=== PATIENT | male | born 1945 | race Caucasian/White ===

== ENCOUNTER → 2018-04-14 | Outpatient (CLI) | payer MEDICARE, OTHER ==
--- NOTE | 2018-04-14 15:43 | 2DMMODE ---
[place] [address] 2 D/M-MODE ECHOCARDIOGRAM Name: CHARANJIT NEWTON JR Room: [facility]#: [id number] Admission: 04/14/18 Attend Phys: Lilliam Singh Discharge: Date of : 41 Date of Service: 04/14/18 1543 Report #: [id number] THIS REPORT FOR: //name// APPROVED REPORT Study performed: 04/14/2018 14:03:30 EXAM: Comprehensive 2D, Doppler, and color-flow Echocardiogram Patient Location: Out-Patient Status: routine BSA: 1.94 HR: 63 bpm BP: 92/50 mmHg Other Information Study Quality: Good Indications Bradycardia Fatigue 2D Dimensions IVSd: 11.27 (7-11mm) LVOT Diam: 20.81 (18-24mm) LVDd: 38.78 mm PWd: 11.03 (7-11mm) Ascending Ao: 28.71 (22-36mm) LVDs: 18.29 (25-40mm) Aortic Root: 26.28 mm Volumes Left Atrial Volume (Systole) LA ESV Index: 13.70 mL/m2 Aortic Valve AoV Peak Stevan.: 1.26 m/s AO Peak Gr.: 6.34 mmHg LVOT Max P.15 mmHg AO Mean Gr.: 3.71 mmHg LVOT Mean P.30 mmHg LVOT Max V: 1.13 m/s AO V2 VTI: 19.13 cm LVOT Mean V: 0.68 m/s BEBO (VTI): 3.63 cm2 LVOT V1 VTI: 20.41 cm Mitral Valve E/A Ratio: 0.42 MV Decel. Time: 360.52 ms MV E Max Stevan.: 0.33 m/[place] [address] 2 D/M-MODE ECHOCARDIOGRAM Name: CHARANJIT NEWTON JR Room: [facility]#: [id number] Admission: 04/14/18 Attend Phys: Lilliam Singh Discharge: Date of : 41 Date of Service: 04/14/18 1543 Report #: [id number] MV PHT: 104.55 ms MVA (PHT): 2.10 cm2 TDI E/Lateral E': 2.06 E/Medial E': 2.36 Medial E' Stevan.: 0.14 m/s Lateral E' Stevan.: 0.16 m/s Pulmonary Valve PV Peak Stevan.: 1.01 m/s PV Peak Gr.: 4.09 mmHg Tricuspid Valve RAP Estimate: 5.00 mmHg TR Peak Gr.: 17.68 mmHg RVSP: 22.68 mmHg PA Pressure: 22.68 mmHg Left Ventricle The left ventricle is normal size. There is normal LV segmental wall motion. There is normal left ventricular wall thickness. Left ventricular systolic function is normal. The left ventricular ejection fraction is within the normal range. LVEF is 60-65%. The left ventricular diastolic function is normal. Right Ventricle The right ventricle is normal size. The right ventricular systolic function is normal. Atria The left atrium size is normal. The right atrium size is normal. Aortic Valve Aortic valve is mildly calcified. No aortic regurgitation is present. There is no aortic valvular stenosis. Mitral Valve The mitral valve is normal in structure. Trace mitral regurgitation. No evidence of mitral valve stenosis. Tricuspid Valve The tricuspid valve is normal in structure. Mild tricuspid regurgitation. Pulmonic Valve The pulmonary valve is normal in structure. [place] [address] 2 D/M-MODE ECHOCARDIOGRAM Name: CHARANJIT NEWTON JR Room: [facility]#: [id number] Admission: 04/14/18 Attend Phys: Lilliam Singh Discharge: Date of : 41 Date of Service: 04/14/18 1543 Report #: [id number] Great Vessels The aortic root is normal in size. IVC is normal in size and collapses >50% with inspiration. Pericardium There is no pericardial effusion. <Conclusion> LVEF is 60-65%. There is normal LV segmental wall motion. Aortic valve is mildly calcified. No aortic regurgitation is present. There is no aortic valvular stenosis. Trace mitral regurgitation. Mild tricuspid regurgitation. Mild pulmonic regurgitation. <ELECTRONICALLY SIGNED> By: Allan Coates MD, FACC 04/14/18 1543 1543 1543 Allan Coates MD, FACC /INF
== END ==
LOC: M.CRD 13:44
DX: I08.1 Rheumatic disorders of both mitral and tricuspid valves (principal)